=== PATIENT | female | born 1985 | race Caucasian/White ===

== ENCOUNTER → 2023-09-28 | Emergency (ER) | payer BC ==
[~2023-09-28] MED LIST: CYCLOBENZAPRINE 10 MG TAB ONE; KETOROLAC 30 MG/ML INJ ONE; dexAMETHasone 10 MG/ML VIAL ONE
--- OUTSIDE RECORDS SUMMARY | 2023-09-28 17:09 | XMS REPORT | Continuity of Care Document ---
Author Name Unknown Address [address] [place] [address] [facility] thconnect Address [address] [place] [address] Care Team Providers Care Rn Midwife Name Role Phone Sonia Kaplan Attending Clinician Unavailable Doctor Unassigned, Craig Attending Clinician U nelson Gonzalez MD, Ethel Deras Attending Clinician [phone] Lab, Fri Attending Clinician Unavailable Physician, No Primary or Family Admitting Clinic mary anne Unavailable Payers Payer Name Policy Type Policy Number Effective Date Expirati on Date Source Problems Condition Name Condition Details Condition Category Status Onset Date Resolution Date Last Treatment Date Treating Clinician Comments Source No known active problems No known active problems Disease [facility] Allergies, Adverse Reactions, Alerts Allergy Name Allergy Type Status Severity Reaction(s) Onset Date Inactive Date Treating Clinician Comments Source No Known Allergie s DA Active U 01-28 00:00: 00 [facility] No Known Allergie s DA Active U 01-28 00:00: 00 [facility] Social History Social Habit Start Date Stop Date Quantity Comments Source Sex Assigned At [facility] Alcohol intake 2019-08-19 00:00:00 2019-08-19 00:00:00 [facility] Smoking Status Start Date Stop Date Source Never smoker [facility] Medications Ordered Medication Name Filled Medication Name Start Date Stop Date Current Medication? Ordering Clinician Indication Dosage Frequency Signature (SIG) Comments Components Source Lactobacill us acidophilus (PROBIOTIC ORAL) 2018-09 21:27: 50 Yes 1{tbl} Take 1 tablet by mouth at bedtime. [facility] Cholecalcif ssuana, Vitamin D3, (VITAMIN D3) 2,000 unit tablet 2018-09 21:27: 50 Yes 1{tbl} Take 1 tablet by mouth daily. [facility] MULTIVITAMI N ORAL 2018-09 21:23: 34 Yes [id number] 1{tbl} Take 1 tablet by mouth daily. [facility] magnesium gluconate 200 mg tablet 2018-09 21:16: 53 Yes 200mg Take 200 mg by mouth daily. [facility] om 3/E/linol/a la/oleic/gl a/lip (OMEGA 3-6-9 ORAL) 2018-09 21:16: 53 Yes 1{tbl} Take 1 tablet by mouth daily. [facility] propranolol 10 mg tablet 2018-09 00:00: 00 Yes [id number] 10mg Take 1 tablet by mouth 2 (two) times daily as needed (tachycard ia). [facility] ACETAMINOPH EN (TYLENOL ORAL) 05-17 16:58: 09 Yes [id number] 1{tbl} Take 1 tablet by mouth every 6 (six) hours as needed (three time a week). [facility] magnesium gluconate 200 mg tablet 05-17 16:58: 09 Yes 200mg Take 200 mg by mouth daily. [facility] om 3/E/linol/a la/oleic/gl a/lip (OMEGA 3-6-9 ORAL) 05-17 16:58: 09 Yes 1{tbl} Take 1 tablet by mouth daily. [facility] MULTIVITAMI N ORAL 05-17 16:58: 09 Yes [id number] 1{tbl} Take 1 tablet by mouth daily. [facility] ACETAMINOPH EN (TYLENOL ORAL) 05-17 16:58: 09 Yes [id number] 1{tbl} Take 1 tablet by mouth every 6 (six) hours as needed (three time a week). [facility] magnesium gluconate 200 mg tablet 05-17 16:58: 09 Yes 200mg Take 200 mg by mouth daily. [facility] om 3/E/linol/a la/oleic/gl a/lip (OMEGA 3-6-9 ORAL) 05-17 16:58: 09 Yes 1{tbl} Take 1 tablet by mouth daily. [facility] ACETAMINOPH EN (TYLENOL ORAL) 05-17 16:58: 09 Yes [id number] 1{tbl} Take 1 tablet by mouth every 6 (six) hours as needed (three time a week). [facility] MULTIVITAMI N ORAL 05-17 16:58: 09 Yes [id number] 1{tbl} Take 1 tablet by mouth daily. [facility] levothyroxi ne 25 mcg tablet 05-17 00:00: 00 Yes [id number] 25ug Take 1 tablet by mouth every morning. 30 min prior to breakfast [facility] ondansetron 4 mg tablet 05-17 00:00: 00 Yes [id number] 4mg Take 1 tablet by mouth every 8 (eight) hours as needed for Nausea and Vomiting (N/V). [facility] levothyroxi ne 25 mcg tablet 05-17 00:00: 00 Yes [id number] 25ug Take 1 tablet by mouth every morning. 30 min prior to breakfast [facility] ondansetron 4 mg tablet 05-17 00:00: 00 Yes [id number] 4mg Take 1 tablet by mouth every 8 (eight) hours as needed for Nausea and Vomiting (N/V). [facility] levothyroxi ne 25 mcg tablet 05-17 00:00: 00 Yes [id number] 25ug Take 1 tablet by mouth every morning. 30 min prior to breakfast [facility] ondansetron 4 mg tablet 05-17 00:00: 00 Yes [id number] 4mg Take 1 tablet by mouth every 8 (eight) hours as needed for Nausea and Vomiting (N/V). [facility] MULTIVITAMI N ORAL 04-16 19:25: 57 Yes [id number] 1{tbl} Take 1 tablet by mouth daily. [facility] ACETAMINOPH EN (TYLENOL ORAL) 04-16 19:25: 57 Yes [id number] 1{tbl} Take 1 tablet by mouth every 6 (six) hours as needed (three time a week). [facility] MULTIVITAMI N ORAL 04-16 19:25: 57 Yes [id number] 1{tbl} Take 1 tablet by mouth daily. [facility] ACETAMINOPH EN (TYLENOL ORAL) 04-16 19:25: 57 Yes [id number] 1{tbl} Take 1 tablet by mouth every 6 (six) hours as needed (three time a week). [facility] MULTIVITAMI N ORAL 04-16 19:25: 57 Yes [id number] 1{tbl} Take 1 tablet by mouth daily. [facility] ACETAMINOPH EN (TYLENOL ORAL) 04-16 19:25: 57 Yes [id number] 1{tbl} Take 1 tablet by mouth every 6 (six) hours as needed (three time a week). [facility] MULTIVITAMI N ORAL 04-16 19:25: 57 Yes [id number] 1{tbl} Take 1 tablet by mouth daily. [facility] ACETAMINOPH EN (TYLENOL ORAL) 04-16 19:25: 57 Yes [id number] 1{tbl} Take 1 tablet by mouth every 6 (six) hours as needed (three time a week). [facility] MULTIVITAMI N ORAL 04-16 19:25: 57 Yes [id number] 1{tbl} Take 1 tablet by mouth daily. [facility] ACETAMINOPH EN (TYLENOL ORAL) 04-16 19:25: 57 Yes [id number] 1{tbl} Take 1 tablet by mouth every 6 (six) hours as needed (three time a week). [facility] MULTIVITAMI N ORAL 04-16 19:25: 57 Yes [id number] 1{tbl} Take 1 tablet by mouth daily. [facility] ACETAMINOPH EN (TYLENOL ORAL) 04-16 19:25: 57 Yes [id number] 1{tbl} Take 1 tablet by mouth every 6 (six) hours as needed (three time a week). [facility] Magnesium Glycinate 100 mg Tab 01-27 00:00: 00 Yes 200mg Gargle 200 mg and spit out 3 (three) times daily. [facility] Magnesium Glycinate 100 mg Tab 01-27 00:00: 00 Yes 200mg Gargle 200 mg and spit out 3 (three) times daily. [facility] Magnesium Glycinate 100 mg Tab 01-27 00:00: 00 Yes 200mg Gargle 200 mg and spit out 3 (three) times daily. [facility] Magnesium Glycinate 100 mg Tab 01-27 00:00: 00 Yes 200mg Gargle 200 mg and spit out 3 (three) times daily. [facility] Magnesium Glycinate 100 mg Tab 01-27 00:00: 00 Yes 200mg Gargle 200 mg and spit out 3 (three) times daily. [facility] Magnesium Glycinate 100 mg Tab 01-27 00:00: 00 Yes 200mg Gargle 200 mg and spit out 3 (three) times daily. [facility] Magnesium Glycinate 100 mg Tab 01-27 00:00: 00 05-17 00:00 :00 No 200mg Gargle 200 mg and spit out 3 (three) times daily. [facility] Magnesium Glycinate 100 mg Tab 01-27 00:00: 00 05-17 00:00 :00 No 200mg Gargle 200 mg and spit out 3 (three) times daily. [facility] Vital Signs Vital Name Observation Time Observation Value Comments S ource Systolic blood pressure 2019-05-17 16:54:00 135 mm[Hg] [facility] Diastolic blood pressure 2019-05-17 16:54:00 85 mm[Hg] [facility] Heart rate 2019-05-17 16:54:00 73 /min [facility] Body temperature 2019-05-17 16:54:00 36.94 Paige [facility] Respiratory rate 2019-05-17 16:54:00 18 /min [facility] Body weight 2019-05-17 16:54:00 63.231 kg [facility] BMI 2019-05-17 16:54:00 22.50 kg/m2 [facility] Systolic blood pressure 2019-05-17 16:54:00 135 mm[Hg] [facility] Diastolic blood pressure 2019-05-17 16:54:00 85 mm[Hg] [facility] Heart rate 2019-05-17 16:54:00 73 /min [facility] Body temperature 2019-05-17 16:54:00 36.94 Paige [facility] Respiratory rate 2019-05-17 16:54:00 18 /min [facility] Body weight 2019-05-17 16:54:00 63.231 kg [facility] BMI 2019-05-17 16:54:00 22.50 kg/m2 [facility] Procedures Procedure Date / Time Performed Performing Clinicia n Source EXTERNAL PROVIDER RECORDS 2019-10-21 06:01:00 Doctor Unassigned, Craig [facility] Encounters Start Date/Time End Date/Time Encounter Type Admission Type Attending Clinicians Care Facility Care Department Encounter ID Source 2021-09-29 00:14:00 Inpatient JANY RosauraSonia barnett [facility] [id number] [facility] 2021-09-18 11:10:00 2021-09-28 00:00:00 Inpatient Sonia Lewis [facility]T [id number] 71 [facility] 2021-08-20 10:07:00 2021-08-28 00:00:00 Inpatient JANY Rosaura Sonia [facility]T [id number] 36 [facility] 2021-07-23 12:07:00 2021-07-29 00:00:00 Inpatient Sonia Lewis [facility]T [id number] [facility] 2021-06-25 08:46:00 2021-06-28 00:00:00 Inpatient Sonia Lewis [facility]T [id number] 87 [facility] 2019-10-21 00:00:00 2019-10-21 00:00:00 Orders Only Doctor Unassigned, Craig [facility] [id number] [id number] [id number] 2019-10-21 00:00:00 2019-10-21 00:00:00 Orders Only Doctor Unassigned, Craig [facility] [id number] 350.1.13.10 [id number] [id number] [facility] 2019-05-17 11:28:05 2019-05-17 15:16:26 Office Visit Ethel Gonzalez [facility] [id number] 350.1.13.10 4.2.7.2.686 [id number] 2019-05-17 11:28:05 2019-05-17 15:16:26 Office Visit Ethel Gonzalez [facility] [id number] 350.1.13.10 [id number] [id number] [facility] 2019-05-13 00:00:00 2019-05-13 00:00:00 Telephone Ethel Gonzalez [facility] 1.2.840.114 350.1.13.10 [id number] [id number] [facility] 2019-05-10 08:13:23 2019-05-10 08:33:23 Hospice Case Manager Visit Lab, Ethel El [facility] 1.2.840.114 350.1.13.10 4.2.7.2.686 [id number] [facility] 2019-04-28 00:00:00 2019-04-28 00:00:00 Telephone Ethel Gonzalez [facility] 1.2.840.114 350.1.13.10 [id number] [id number] [facility] 2019-04-23 16:17:35 2019-04-23 16:37:35 Hospice Case Manager Visit Lab, Fri Ethel Gonzalez [facility] 1.2.840.114 350.1.13.10 4.2.7.2.686 [id number] [facility] 2019-04-23 00:00:00 2019-04-23 00:00:00 Telephone Ethel Gonzalez [facility] [id number] 350.1.13.10 [id number] [id number] [facility] 2019-04-23 00:00:00 2019-04-23 00:00:00 Case Management Ethel Gonzalez [facility] [id number] 350.1.13.10 [id number] [id number] [facility]
[2023-09-28 18:11] LABS: Specific Gravity 1.007 (1.005-1.030); Urine Bilirubin NEGATIVE (Negative); Urine Blood Negative (Negative); Urine Clarity Clear (Clear); Urine Color Colorless (Yellow); Urine Glucose NEGATIVE (Negative); Urine Protein NEGATIVE (Negative); Urine Urobilinogen Normal (Normal)
--- NOTE | 2023-09-28 18:28 | RAD REPORT ---
EXAM DESCRIPTION: CT - Stone Protocol - 09/28/2023 6:17 pm CLINICAL HISTORY: Flank pain. ABD PAIN COMPARISON: <Comparisons> TECHNIQUE: Axial images were obtained without oral or IV contrast. Lack of contrast limits solid org an and vascular assessment. The vwkmj-yc-lcal spans the entirety of the system partially obscuring uppermost abdomen and lung bases. Coronal reformatted images were obtained and reviewed. All CT scans are performed using dose optimization technique as appropriate and may include automated exposure control or mA/KV adjustment according to patient size. FINDINGS: The lower lung rosenberg are clear. Imaged portions of the liver and spleen show no suspicious findings on non-contrast imaging.Suspected 15 mm benign cyst left lobe of the liver. The pancreas and adrenal glands are normal. No pathologic lymphadenopathy in the abdomen or pelvis. No urinary tract stones or obstructive uropathy. No bowel obstruction, free air, free fluid or abscess. Normal appendix noted. No significant bony abnormality. IMPRESSION: No urinary tract stones or obstructive uropathy.
--- NOTE | 2023-09-28 19:16 | ER ---
Nurse's Notes [facility] Name: Brooklyn Albrecht Age: 37 yrs Sex: Female : 1985 Arrival Date: 09/28/2023 Time: 17:05 Bed 12 Private MD: Diagnosis: Sciatica, left side Presentation: 09/28 17:32 Chief complaint: Patient states: Pt c/o left flank pain that radiates into left lower tl4 quadrant x 9 days. Pain got worse today. Ebola Screen: Patient negative for fever greater than or equal to 101.5 degrees Fahrenheit, and additional compatible Ebola Virus Disease symptoms Patient denies exposure to infectious person. Patient denies travel to an Ebola-affected area in the 21 days before illness onset. No symptoms or risks identified at this time. Initial Sepsis Screen: Does the patient meet any 2 criteria? No. Patient's initial sepsis screen is negative. Does the patient have a suspected source of infection? No. Patient's initial sepsis screen is negative. Risk Assessment: Do you want to hurt yourself or someone else? Patient reports no desire to harm self or others. Onset of symptoms was September 18, 2023. 17:32 Method Of Arrival: Ambulatory tl4 17:32 Acuity: MANJEET 3 tl4 17:34 Coronavirus screen: Vaccine status: Patient reports receiving the 2nd dose of the covid tl4 vaccine. At this time, the client does not indicate any symptoms associated with coronavirus-19. Triage Assessment: 17:36 General: Appears uncomfortable, Behavior is calm, cooperative. Pain: Complains of pain tl4 in left lower quadrant and left low back. Musculoskeletal: Circulation, motion, and sensation intact. Capillary refill < 3 seconds, Range of motion: intact in all extremities. Historical: - PMHx: 17:34 None; tl4 - Immunization history:: Adult Immunizations unknown. - Social history:: Smoking status: Patient denies any tobacco usage or history of. Screenin:48 [facility] ED Fall Risk Assessment (Adult) History of falling in the last 3 months, bp including since admission No falls in past 3 months (0 pts). Abuse screen: Denies threats or abuse. Denies injuries from another. Nutritional screening: No deficits noted. Tuberculosis screening: No symptoms or risk factors identified. Vital Signs: 17:34 BP 143 / 93; Pulse 89; Resp 18; Temp 98.2; Pulse Ox 100% ; Weight 70.31 kg; Height 5 tl4 ft. 6 in. ; Pain 8/10; 17:34 Body Mass Index 25.02 (70.31 kg, 167.64 cm) tl4 17:34 Pain Scale: Adult tl4 ED Course: 17:06 Patient arrived in ED. ts1 17:11 Vivian Holden FNP-C [facility] kb 17:11 Antwon Carter MD is Attending Physician. kb 17:34 Triage completed. tl4 17:37 Arm band placed on left wrist. tl4 18:16 CT completed. pt signed form stating that there is no chance of . mw3 18:18 CT Stone Protocol In Process Unspecified. EDMS 19:32 Phoenix Quevedo, RN is Primary Nurse. bp 19:48 Patient has correct armband on for positive identification. bp 19:48 No provider procedures requiring assistance completed. Patient did not have IV access bp during this emergency room visit. Administered Medications: 17:35 Not Given (Duplicate Order): [id number] mg IVP once kb 19:41 Drug: Ketorolac IM 30 mg IM once Route: IM; Site: right ventrogluteal; pf1 19:49 Follow up: Response: No adverse reaction bp 19:41 Drug: Cyclobenzaprine PO 10 mg PO once Route: PO; pf1 19:49 Follow up: Response: No adverse reaction bp 19:41 Drug: Dexamethasone IM 10 mg IM once Route: IM; Site: left ventrogluteal; pf1 19:48 Follow up: Response: No adverse reaction bp Outcome: 19:15 Discharge ordered by . kb 19:48 Discharged to home ambulatory, with family, bp 19:48 Condition: stable 19:48 Discharge instructions given to patient, Instructed on discharge instructions, follow up and referral plans. medication usage, Demonstrated understanding of instructions, follow-up care, medications, Prescriptions given X 2, 19:49 Patient left the ED. bp Signatures: Dispatcher [employer] EDMS Vivian Holden FNP-C FNP-Phoenix Gay, RN RN bp Fatemeh Brink mw3 Lurdes Villanueva RN RN pf1 Bela Fuentes PAS PAS ts1 Alberto Delatorre tl4
--- NOTE | 2023-09-28 19:16 | EDPHYS ---
Physician Documentation [facility] Name: Brooklyn Albrecht Age: 37 yrs Sex: Female : 1985 Arrival Date: 09/28/2023 Time: 17:05 Bed 12 Private MD: ED Physician Antwon Carter HPI: 09/28 17:34 This 37 yrs old Female presents to ER via Ambulatory with complaints of Back Pain, kb Pelvic Pain. 17:36 Pt reports left low back pain that radiates to left pelvic area that started 9 days ago kb and has gotten worse today. States pain is improved with hot bath, worse with movement. Denies injury or trauma, n/v/d, urinary symptoms. . Historical: - PMHx: 17:34 None; tl4 - Immunization history:: Adult Immunizations unknown. - Social history:: Smoking status: Patient denies any tobacco usage or history of. ROS: 17:35 Constitutional: Negative for fever, chills, and weight loss, kb 17:35 Abdomen/GI: Positive for abdominal pain, of the left lower quadrant, Negative for nausea, vomiting, and diarrhea, 17:35 Back: Positive for pain at rest, pain with movement, flank pain, radiated pain, of the left low back, 17:35 All other systems are negative, Exam: 17:35 Constitutional: This is a well developed, well nourished patient who is awake, alert, kb and in no acute distress. Head/Face: Normocephalic, atraumatic. ENT: Moist Mucous membranes Cardiovascular: Regular rate Respiratory: Respirations even and unlabored. No increased work of breathing. Talking in full sentences Skin: Warm, dry with normal turgor. Normal color. MS/ Extremity: Pulses equal, no cyanosis. Neurovascular intact. Full, normal range of motion. Neuro: Awake and alert, GCS 15, oriented to person, place, time, and situation. Moves all extremities. Normal gait. 17:35 Abdomen/GI: Inspection: abdomen appears normal, Bowel sounds: normal, Palpation: soft, in all quadrants, mild abdominal tenderness, in the left lower quadrant, 17:35 Back: pain, that is mild, that is moderate, of the left low back, Vital Signs: 17:34 BP 143 / 93; Pulse 89; Resp 18; Temp 98.2; Pulse Ox 100% ; Weight 70.31 kg; Height 5 tl4 ft. 6 in. ; Pain 8/10; 17:34 Body Mass Index 25.02 (70.31 kg, 167.64 cm) tl4 17:34 Pain Scale: Adult tl4 MDM: 17:11 Patient medically screened. kb 19:14 Data reviewed: vital signs, nurses notes. kb 19:14 Differential diagnosis: strain, sciatica, contusion, Herniated disc UTI, kidney stone. kb Counseling: I had a detailed discussion with the patient and/or guardian regarding the historical points, exam findings, and any diagnostic results supporting the discharge/admit diagnosis, lab results, radiology results, the need for outpatient follow up, a family practitioner, to return to the emergency department if symptoms worsen or persist or if there are any questions or concerns that arise at home. 09/28 17:34 Order name: Urinalysis w/ reflexes; Complete Time: 18:13 kb 09/28 17:34 Order name: Test, Urine; Complete Time: 18:20 kb 09/28 17:34 Order name: CT Stone Protocol; Complete Time: 18:31 kb Administered Medications: 17:35 Not Given (Duplicate Order): [id number] mg IVP once kb 19:41 Drug: Ketorolac IM 30 mg IM once Route: IM; Site: right ventrogluteal; pf1 19:49 Follow up: Response: No adverse reaction bp 19:41 Drug: Cyclobenzaprine PO 10 mg PO once Route: PO; pf1 19:49 Follow up: Response: No adverse reaction bp 19:41 Drug: Dexamethasone IM 10 mg IM once Route: IM; Site: left ventrogluteal; pf1 19:48 Follow up: Response: No adverse reaction bp Disposition: 09/29 08:57 Co-signature as Attending Physician, Antwon Carter MD I reviewed the patient's care rn provided by the Advanced Practice Provider and agree with the diagnosis and treatment plan. Disposition Summary: 09/28/23 19:15 Discharge Ordered Notes: Location: Home Condition: Stable kb Diagnosis - Sciatica, left side kb Followup: kb - With: Emergency Department - When: As needed - Reason: Worsening of condition Followup: kb - With: Private Physician - When: 2 - 3 days - Reason: Recheck today's complaints, Continuance of care, Re-evaluation by your physician Discharge Instructions: - Discharge Summary Sheet kb - Sciatica, [id number] kb Forms: - Medication Reconciliation Form kb - Thank You Letter kb - Antibiotic Education kb - Prescription Opioid Use kb - Patient Portal Instructions kb - Leadership Thank You Letter kb Prescriptions: - Prednisone 20 mg Oral Tablet - take 1 tablet ORAL route once daily for 5 days; 5 tablet; Refills: 0, Product kb Selection Permitted - Cyclobenzaprine 10 mg Oral tablet - take 1 tablet ORAL route every 8 hours As needed; 21 tablet; Refills: 0, kb Product Selection Permitted Signatures: Dispatcher [employer] EDCO Vivian Holden, GAS METER INSTALLER HELPER-C GAS METER INSTALLER HELPER-Antwon Mendez MD MD rn Lurdes Villanueva RN RN pf1 Alberto Delatorre 4 Phoenix Quevedo RN bp
[2023-09-28 20:02] VITALS: BP 143/93; TEMP 98.2; O2SAT 100
== END ==
LOC: ER 17:05
DX: M54.32 Sciatica, left side (principal)
CPT/HCPCS: 81025; 81003; 76377; 74176; 96372; 99284; J1100